=== PATIENT | male | born 1995 | race Caucasian/White ===

== ENCOUNTER 2018-06-05 19:47 | Emergency (ER) | payer MEDICAID ==
[2018-06-05] MEDS: HYDROCODONE/APAP 5/325 TAB PO ONE (20:04)
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
[2018-06-05 20:54] VITALS: BP 123/59
== END 2018-06-05 21:13 | disposition home or self-care (01) ==
LOC: EDUNIT#
PROC: 0HQ1XZZ Repair Face Skin, External Approach (ICD-10-PCS; principal; 2018-06-05)
DX: S01.112A Laceration without foreign body of left eyelid and periocular area, initial encounter (principal)